=== PATIENT | female | born 1960 | race Caucasian/White ===

== ENCOUNTER 2019-04-05 11:30 | Day surgery (SDC) | payer OTHER ==
[~2019-04-05] VITALS: Ht 167.6 cm; Wt 111.1 kg
[~2019-04-05 11:30] MED LIST: Allegra-D 12 H1 EACH PO; BENADRYL25 MG PO; CARI350; CYCL10 PO; Cyclobenzaprine5 MG PO; DULO30; Dyazide 37.5-21 EACH PO; ERGO400 PO; ESTMET; Estradiol0.5 MG PO; Flonase 0.05% N16 GM; GABA100 PO; GABA800 PO; GUAI600T33 PO; HYDACE5; HYDCOR2.5C PR; Imitrex100 MG PO; LIDO700A20 TOP; MELO7.5; METCAR500 PO; MIRALAX17 GM PO; MOVANTIK25 MG PO; Mobic15 MG PO; NORT50; Neurontin600 MG PO; OXYACE5T; OXYACE7.5T PO; OXYC30ER PO; Omega 3 1,0001 EACH PO; Omeprazole20 M1; Oxycodone HCl20 M1 PO; Oxycontin20 MG PO; PIRO20 PO; PROP60; Ranitidine HCl150 M1 PO; SUMA25; TOPIRAMATE ER150 MG PO; TRAZ150T57; TRAZ150T57 PO; VENL75ER PO; Venlafaxine HCl75 M1 PO
== END 2019-04-05 14:13 | disposition home or self-care (01) ==
LOC: ORSCSDS 11:30
PROVIDERS: Internal Medicine Gastroenterology
PROC: 0D757ZZ Dilation of Esophagus, Via Natural or Artificial Opening (ICD-10-PCS; principal; 2019-04-05 13:00)
PROC: 0DJD8ZZ Inspection of Lower Intestinal Tract, Via Natural or Artificial Opening Endoscopic (ICD-10-PCS; principal; 2019-04-05 13:00)
PROC: 0DJ08ZZ Inspection of Upper Intestinal Tract, Via Natural or Artificial Opening Endoscopic (ICD-10-PCS; principal; 2019-04-05 13:00)
DX: K59.00 Constipation, unspecified (principal); K57.30 Diverticulosis of large intestine without perforation or abscess without bleeding; Z86.010 Personal history of colon polyps; Z83.71 Family history of colonic polyps; K21.9 Gastro-esophageal reflux disease without esophagitis; R13.14 Dysphagia, pharyngoesophageal phase; Z68.41 Body mass index [BMI] 40.0-44.9, adult; G47.33 Obstructive sleep apnea (adult) (pediatric); F17.210 Nicotine dependence, cigarettes, uncomplicated; Z79.899 Other long term (current) drug therapy
CPT/HCPCS: J2704; J7120

== ENCOUNTER 2021-10-05 00:23 | Emergency (ER) | payer OTHER ==
[~2021-10-05] VITALS: Ht 167.6 cm; Wt 81.7 kg
== END 2021-10-05 03:00 | disposition home or self-care (01) ==
LOC: ER 00:23
DX: S00.83XA Contusion of other part of head, initial encounter (principal); F17.210 Nicotine dependence, cigarettes, uncomplicated; Z79.899 Other long term (current) drug therapy; W19.XXXA Unspecified fall, initial encounter
CPT/HCPCS: 70450; 99284-25; A9270